=== PATIENT | male | born 1960 | race Caucasian/White ===

== ENCOUNTER 2018-04-07 22:10 | Emergency (ER) | payer MEDICAID ==
--- NOTE | 2018-04-07 22:26 | CPEKG ---
Heart Rate: 70 RR Interval: 857 P-R Interval: 216 QRSD Interval: 116 QT Interval: 424 QTC Interval: 458 P [place]: 19 QRS [place]: -1 T Wave [place]: 209 EKG Severity - ABNORMAL ECG - EKG Impression: SINUS RHYTHM EKG Impression: FIRST DEGREE AV BLOCK EKG Impression: NONSPECIFIC INTRAVENTRICULAR CONDUCTION DELAY EKG Impression: ABNRM R PROG, CONSIDER ASMI OR LEAD PLACEMENT EKG Impression: MINIMAL ST DEPRESSION, LATERAL LEADS EKG Impression: No change from prior. Electronically Signed By: Anthony Aparicio 09-Apr-2018 00:05:41
[2018-04-07] MEDS ORDERED: ASPIRIN 81 MG CHEWABLE TAB PO ONE (22:47)
--- NOTE | 2018-04-07 22:47 | EDPHY ---
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 He tells me that he went to the gym today in the afternoon and had a workout that"felt good". He has been working at the gym only for about 2 weeks in an effort to get himself in better shape. After the gym this evening he went out and had dinner in [place], he ate a couple zone. He drove back to the gym to do a little socializing it was then around 9 o'clock that he noticed his arm was weak. He denies numbness to the arm. He denies facial droop or slurred speech. He has no headache. The only other symptom he tells me is when he was walking into the emergency department he felt his right leg was slightly off as he noticed he had a limp which is not normal for him. In the emergency department during the evaluation he denies any sensation of weakness in his right arm. He denies any chest pain or shortness of breath. He has had no recent illnesses. He is scheduled for a stress test with Dr. Arriaza at [facility] on Thursday. REVIEW OF SYSTEMS: Constitutional: No fever, no chills. Eyes: No discharge. ENT: No sore throat. Cardiovascular: No chest pain, no palpitations. Respiratory: No cough, no shortness of breath. Gastrointestinal: No abdominal pain, no vomiting. Genitourinary: No dysuria. Musculoskeletal: No back pain. Skin: No rashes. Neurological: No headache. No vision changes General Appearance: Alert, no distress. Overweight. Eyes: Pupils equal and round no pallor or injection. ENT, Mouth: Mucous membranes moist. Respiratory: There are no retractions, lungs are clear to auscultation. Cardiovascular: Regular rate and rhythm. Gastrointestinal: Abdomen is soft and nontender, no masses, bowel sounds normal. Neurological: Cranial nerves intact. Right arm with reasonable strength in flexion and extension but much weaker when compared to left. Patient is right- hand dominant. Normal sensation to the right hand. Normal pulses. Patient is able to hold right arm up for a full 10 sec. Lower extremity exam normal. Skin: Warm and dry, no rashes. Musculoskeletal: Neck is supple nontender. Extremities are symmetrical, full range of motion, no edema. Psychiatric: Patient is oriented X 3, there is no agitation. Medical/surgical history: Cardiomegaly, stage for hypertension, donated a kidney in 2007. Surgery on right elbow. He wears CPAP at night. Social history: Former smoker (Aubree Heard) Constitutional: Initial Vital Signs Temperature (C) 36.6 C 04/07/18 22:20 Heart Rate 72 04/07/18 22:20 Respiratory Rate 20 04/07/18 22:20 Blood Pressure 163/107 H 04/07/18 22:20 O2 Sat (%) 96 04/07/18 22:20 O2 Delivery Mode Room Air O2 (L/minute) 2 Allergies/Adverse Reactions: Sulfa (Sulfonamide Antibiotics) Allergy (Verified 08/06/16 14:54) Home Medications: Medication Instructions Recorded Bystolic 04/07/18 Hydralazine HCl 04/07/18 Medical Decision Making <Aubree Heard - Last Filed: 04/07/18 23:09> - Diagnostics Imaging: Discussed imaging studies w/ scallop cutter Radiologist <Anthony Aparicio - Last Filed: 04/08/18 07:16> - Diagnostics Imaging Results: Imaging Impressions Head CT 04/07/18 22:47 Impression: There is no acute intracranial abnormality identified on this unenhanced CT evaluation. If there is further clinical concern regarding the patient's symptoms, MR imaging is suggested, if not otherwise contraindicated. Findings were discussed with Anthony Aparicio MD at 23:03, on 04/07/2018. (CT exam time: 22:56). Chest X-Ray 04/07/18 22:48 Impression: Query mild cardiac silhouette enlargement. ED Course/Re-evaluation: 10:40 p.m. stroke alert called for right upper extremity weakness. Last normal 9:00 p.m.. EKG shows sinus rhythm with a rate of 70, first-degree AV block and nonspecific intraventricular conduction delay. Some diffuse T-wave abnormalities, inversions. When compared to EKG from July 2016 no significant changes. Impression abnormal, nonspecific unchanged EKG. At 11:[address] Siddharth hernandez came to the emergency department for his evening shift. I discussed this case in detail and he will take over care. (Aubree Heard) Differential Diagnosis: Differential diagnosis includes CVA, peripheral neuropathy, musculoskeletal weakness. At the time of my departure from the emergency department patient undergoing evaluation for possible stroke. Dr. Aparicio will assume care. (Aubree Heard) Other Provider: Care assumed at 2300 hr. Pt interviewed and examined, chart reviewed and d/w Dr. Heard: In addition to the above comments by Dr. Heard, on my HX pt states he is right handed. He weakness and clumsiness on the right is slightly better than at arrival, at this time. No GIRALDO nor scotoma. No hx of Migraine or head trauma or neck injury. No prior neuro work up nor carotid study. ROS otherwise neg. PE, after neg CT: General Appearance: Alert, no distress. Afebrile. Normal phonation. No respiratory distress. Eyes: Pupils equal and round no pallor or injection. No icterus ENT, Mouth: Mucous membranes moist slightly dry moderately dry Pharynx without erythema or exudate. TM Clear. Neck: No adenopathy. Supple. No JVD. Trachea in midline. Respiratory: There are no retractions, lungs are clear to auscultation. Chest wall: Nontender to palpation. No crepitus. Cardiovascular: Regular rate and rhythm. Abdomen: Soft and nontender, no masses, bowel sounds normal. Femoral pulses equal. Neurological: Cranial nerves 2-12 are intact. Normal muscles of facial expression. No nystagmus nor internuclear palsy. EOMI. Ox3. He has both slightly clumsy and a little weak in the right hand, right hand dominant. 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 He also has slightly decreased [id number] coordination on the right compared to the left. Sensation intact. Gait nl. Skin: Warm and dry, no rashes. Musculoskeletal: No joint swelling. Extremities: No edema. Homans sign negative. No cords. Psychiatric: Normal affect. Patient is oriented X 3. There is no agitation EKG shows no acute achanges with mild NSSTT changes laterally and inferior. No personal or family hx of aortic diseases. Former smoker though wrt RF for aortic aneurysm. NO connective tissue disease. No hypermobile joints or disproportionate upper vs lower body segment or digits. Reviewed his Echo pt brought with him: Echo in 08/08 - mild concentric LV hypertrophy with nl EF and systolic function. Neurologic stroke scale = 1 due to EDITA weakness, though able to hold arm up for [address] scan was performed without IV contrast. Interpretation by radiologist. Discussed with radiologist. Findings are essentially negative. I discussed with the radiologist the prospect of doing a CTA of head and neck. However, given the fact he has 1 kidney, creatinine of 1.4, and stroke scale of 1, I would defer to the prospect of getting MRI later tonight or tomorrow. D/w Dr. Goodman of [place]. He interviewed and examined pt remotely. Recommends: - hospitalization - not a TPA candidate - MRI in the am - no need to acutely intervene on BP of 180/110. Though pt given his medications he was due this evening, from his own supply = Bystolic and hydralazine Case discussed with Dr. Villasenor of [facility] hospitalist group regarding admission. Patient accepted for direct admission, observation status, there were that the patient is insisting on a private car and likewise advise the patient again such. I met with the patient discussed my concerns regarding the prospect of this being a stroke syndrome. It certainly is improving a little bit so the prospect of a classic migraine equivalent is certainly possible. A TIA would be of consideration however it is not resolved completely. The patient aware of my concerns. He was somewhat reticent for consideration of admission but ultimately understood the both high and doctor for [facility] recommended such. However, the patient was caution and warned regarding the need for him was transfer. He continued to be adamant that he would be assuming the risk for private vehicle transfer. Despite several attempts to dissuade him, he stuck with this plan and was left AMA -though was willing to take himself to [facility] for admission (Anthony Aparicio) - Data Points Laboratory Results: Laboratory Results 04/07/18 22:50 04/07/18 22:50 04/07/18 04/07/18 04/07/18 22:50 22:50 22:50 WBC RBC Hgb POC Hgb 15.0 gm/dL gm/dL (13.7-17.5) Hct POC Hct 44 % % (40-51) MCV MCH MCHC RDW Plt Count MPV Neut % (Auto) Lymph % (Auto) [place] % (Auto) Eos % (Auto) Baso % (Auto) Nucleat RBC Rel Count Absolute Neuts (auto) Absolute Lymphs (auto) Absolute Monos (auto) Absolute Eos (auto) Absolute Basos (auto) Absolute Nucleated RBC Immature Gran % Immature Gran # PT 13.7 SEC SEC (12.0-15.0) INR 1.06 (0.83-1.16) POC Sodium 145 mEq/L mEq/L (135-145) Sodium 141 mEq/L mEq/L (135-145) POC Potassium 3.6 mEq/L mEq/L (3.3-5.0) Potassium 3.6 mEq/L mEq/L (3.3-5.0) POC Chloride 107 mEq/L mEq/L (97-110) Chloride 105 mEq/L mEq/L (97-110) Carbon Dioxide 24 mEq/l mEq/l (22-31) Anion Gap 12 mEq/L mEq/L (8-16) POC BUN 27 mg/dL H mg/dL (7-23) BUN 27 mg/dL H mg/dL (7-23) Creatinine 1.3 mg/dL mg/dL (0.7-1.3) POC Creatinine 1.4 mg/dL H mg/dL (0.7-1.3) Estimated GFR 57 Glucose 116 mg/dL H mg/dL (70-100) POC Glucose 115 mg/dL H mg/dL (70-100) Calcium 9.1 mg/dL mg/dL (8.5-10.4) 04/07/18 22:50 WBC 8.42 10^3/uL 10^3/uL (3.80-9.50) RBC 4.97 10^6/uL 10^6/uL (4.40-6.38) Hgb 14.9 g/dL g/dL (13.7-17.5) POC Hgb Hct 43.8 % % (40.0-51.0) POC Hct MCV 88.1 fL fL (81.5-99.8) MCH 30.0 pg pg (27.9-34.1) MCHC 34.0 g/dL g/dL (32.4-36.7) RDW 13.7 % % (11.5-15.2) Plt Count 219 10^3/uL 10^3/uL (150-400) MPV 9.7 fL fL (8.7-11.7) Neut % (Auto) 56.2 % % (39.3-74.2) Lymph % (Auto) 26.5 % % (15.0-45.0) [place] % (Auto) 10.8 % % (4.5-13.0) Eos % (Auto) 4.9 % % (0.6-7.6) Baso % (Auto) 1.4 % % (0.3-1.7) Nucleat RBC Rel Count 0.0 % % (0.0-0.2) Absolute Neuts (auto) 4.73 10^3/uL 10^3/uL (1.70-6.50) Absolute Lymphs (auto) 2.23 10^3/uL 10^3/uL (1.00-3.00) Absolute Monos (auto) 0.91 10^3/uL H 10^3/uL (0.30-0.80) Absolute Eos (auto) 0.41 10^3/uL H 10^3/uL (0.03-0.40) Absolute Basos (auto) 0.12 10^3/uL H 10^3/uL (0.02-0.10) Absolute Nucleated RBC 0.00 10^3/uL 10^3/uL (0-0.01) Immature Gran % 0.2 % % (0.0-1.1) Immature Gran # 0.02 10^3/uL 10^3/uL (0.00-0.10) PT INR POC Sodium Sodium POC Potassium Potassium POC Chloride Chloride Carbon Dioxide Anion Gap POC BUN BUN Creatinine POC Creatinine Estimated GFR Glucose POC Glucose Calcium Medications Given: Discontinued Medications Aspirin (Aspirin) 324 mg PO EDNOW ONE Stop: 04/07/18 22:48 Last Admin: 04/07/18 23:16 Dose: 324 mg Hydralazine HCl (Apresoline) 10 mg PO EDNOW ONE Stop: 04/08/18 00:17 Last Admin: 04/08/18 00:34 Dose: 10 mg Sodium Chloride (Ns) 1,000 mls @ 0 mls/hr IV EDNOW ONE; Wide Open PRN Reason: Protocol Stop: 04/07/18 23:18 Last Admin: 04/07/18 23:18 Dose: 1,000 mls Nebivolol (Bystolic) 10 mg PO DAILY ONE Stop: 04/08/18 00:15 Last Admin: 04/08/18 00:34 Dose: 10 mg Point of Care Test Results: 04/07/18 22:50 POC Sodium 145 POC Potassium 3.6 POC Chloride 107 POC BUN 27 H POC Creatinine 1.4 H POC Glucose 115 H Departure <Aubree Heard - Last Filed: 04/07/18 23:09> <Anthony Aparicio - Last Filed: 04/08/18 07:16> - Departure Disposition: Acute Care Hospital Not [facility] Clinical Impression: Right arm weakness CVA (cerebral vascular accident) Qualifiers: CVA mechanism: unspecified Qualified Code(s): I63.9 - Cerebral infarction, unspecified Condition: Fair Additional Instructions: If you change your mind in the parking lot and want to go by ambulance, we would be happy to arrange that. Go directly to the hospital. Do not go home for some belongings. Referrals: Patient,NotPresent [Primary Care Provider] - As per Instructions
[2018-04-07] MEDS ORDERED: IOPAMIDOL (ISOVUE 370) 100 ML BTL IV ONE (22:55)
[2018-04-07] MEDS ORDERED: IOPAMIDOL (ISOVUE-370) 150 ML BTL IV ONE (22:55)
[2018-04-07 22:57] LABS: PLATELET COUNT 219 10^3/uL (150-400)
[2018-04-07 23:05] LABS: INR 1.06 (0.83-1.16); PROTIME(PATIENT) 13.7 SEC (12.0-15.0)
[2018-04-07] MEDS ORDERED: NS 1,000 ML IV ONE (23:17)
[2018-04-08] MEDS ORDERED: NEBIVOLOL HCL 5 MG TAB PO ONE (00:14)
[2018-04-08] MEDS ORDERED: hydrALAZINE 10 MG TAB PO ONE (00:16)
[2018-04-08 01:12] VITALS: BP 176/91
== END 2018-04-08 01:12 | disposition short-term general hospital (02) ==
LOC: CED 22:10
DX: I63.9 Cerebral infarction, unspecified (principal); E86.9 Volume depletion, unspecified; I10 Essential (primary) hypertension; Z87.891 Personal history of nicotine dependence
CPT/HCPCS: 70450-PO; 71045-PO; 80048-PO; 82947-QW; 85025-PO; 85610-PO; Q9967

== ENCOUNTER 2018-04-13 14:17 | Inpatient (IN) | payer MEDICAID ==
[2018-04-13] MEDS ORDERED: NS 1,000 ML IV ONE (14:29)
--- NOTE | 2018-04-13 14:32 | CPEKG ---
Heart Rate: 143 RR Interval: 420 QRSD Interval: 100 QT Interval: 324 QTC Interval: 500 QRS [place]: 15 T Wave [place]: 206 EKG Severity - ABNORMAL ECG - EKG Impression: ATRIAL FIBRILLATION EKG Impression: REPOL ABNRM SUGGESTS ISCHEMIA, LATERAL LEADS EKG Impression: BORDERLINE PROLONGED QT INTERVAL Electronically Signed By: Denys Rosales 13-Apr-2018 14:48:11
--- NOTE | 2018-04-13 14:33 | EDPHY ---
H & P Source: Patient Exam Limitations: No limitations - Medical/Surgical History Hx Asthma: No Hx Chronic Respiratory Disease: No Hx Diabetes: No Hx Cardiac Disease: Yes Hx Renal Disease: No Hx Cirrhosis: No Hx Alcoholism: No Hx HIV/AIDS: No Hx Splenectomy or Spleen Trauma: No Other PMH: HTN, 1 kidney, ortho sx (patient donated a kidney)enlarged Heart - Family History Significant Family History: No pertinent family hx - Social History Smoking Status: Former smoker Alcohol Use: Sober Drug Use: None Time Seen by Provider: 04/13/18 14:26 HPI/ROS: CHIEF COMPLAINT: Lightheaded HISTORY OF PRESENT ILLNESS: The patient is a 57-year-old obese man who comes to the emergency department complaining of lightheadedness. He was seen here 3 days ago and complained about slight right arm weakness. He had very minimal deficits found on exam but stroke alert was initiated. He was found not to be a tPA candidate and his symptoms resolved and he was transferred to [facility]. The patient reports that there he had an MRI that revealed a lacunar infarct. He was started on aspirin and his blood pressure medicine increased. He does have a history of hypertension. He also reports history of an enlarged heart but denies coronary artery disease arrhythmias. He denies chest pain or shortness of breath today. No recent infections. States that his symptoms began about an hour ago while he was working on his car. REVIEW OF SYSTEMS: Constitutional: denies: chills, fever, recent illness, recent injury EENTM: denies: blurred vision, double vision, nose congestion Respiratory: denies: cough, shortness of breath Cardiac: See HPI denies: chest pain Gastrointestinal/Abdominal: denies: abdominal pain, diarrhea, nausea, vomiting, blood streaked stools Genitourinary: denies: dysuria, frequency, hematuria, pain Musculoskeletal: denies: joint pain, muscle pain Skin: denies: lesions, rash, jaundice, bruising Neurological: denies: headache, numbness, paresthesia, tingling, dizziness, weakness Hematologic/Lymphatic: denies: blood clots, easy bleeding, easy bruising Immunologic/allergic: denies: HIV/AIDS, transplant EXAM: GENERAL: Well-appearing, well-nourished and in no acute distress. HEAD: Atraumatic, normocephalic. EYES: Pupils equal round and reactive to light, extraocular movements intact, sclera anicteric, conjunctiva are normal. ENT: TMs normal, nares patent, oropharynx clear without exudates. Moist mucous membranes. NECK: Normal range of motion, supple without lymphadenopathy or JVD. LUNGS: Breath sounds clear to auscultation bilaterally and equal. No wheezes rales or rhonchi. HEART: Irregular, without murmurs, rubs or gallops. ABDOMEN: Soft, nontender, normoactive bowel sounds. No guarding, no rebound. No masses appreciated. BACK: No CVA tenderness, no spinal tenderness, step-offs or deformities EXTREMITIES: Normal range of motion, no pitting or edema. No clubbing or cyanosis. NEUROLOGICAL: Cranial nerves II through XII grossly intact. Normal speech, normal gait. 5/5 strength, normal movement in all extremities, normal sensation PSYCH: Normal mood, normal affect. SKIN: Warm, dry, normal turgor, no visible rashes or lesions. (Denys Rosales) Constitutional: Initial Vital Signs Temperature (C) 36.6 C 04/13/18 14:20 Heart Rate 150 H 04/13/18 14:20 Respiratory Rate 18 04/13/18 14:20 Blood Pressure 110/70 04/13/18 14:20 O2 Sat (%) 93 04/13/18 14:20 O2 Delivery Mode Nasal Cannula O2 (L/minute) 2 Allergies/Adverse Reactions: Sulfa (Sulfonamide Antibiotics) Allergy (Verified 08/06/16 14:54) Home Medications: Medication Instructions Recorded Aspirin [Aspirin 81mg (*)] 81 mg PO DAILY 04/13/18 Nebivolol HCl [Bystolic] 10 mg PO BID 04/13/18 hydrALAZINE [Apresoline 25 mg (RX)] 25 mg PO BID 04/13/18 Medical Decision Making - Diagnostics EKG Interpretation: An EKG obtained and was read and documented in trace view. Please see trace view for full reading and report. Atrial fibrillation with RVR, no acute ischemic changes (Denys Rosales) ED Course/Re-evaluation: We discussed the patient's atrial fibrillation. I will give him diltiazem and Lovenox. Lab work is still pending. The patient will require hospitalization. He was just discharged from [facility]'s day or 2 ago. They performed stress test, carotid endarterectomy, MRI at said her there. He would prefer to go back there. (Denys Rosales) Differential Diagnosis: Partial list of the Differential diagnosis considered include but were not limited to; atrial fibrillation, SVT, anxiety, hypertensive emergency and although unlikely based on the history and physical exam, I also considered CVA , infection. (Denys Rosales) Other Provider: Care turned over to me at shift change, patient pending inpatient admission for new onset atrial fibrillation with rapid ventricular rate. Patient had been given diltiazem 10 mg as well as Lovenox 150 mg prior to my arrival. His rate tended to vary between 90 and 120 after medication. He had no further complaints Initially I attempted to admit him to [facility] where he had had a recent admission for lacunar infarct last week, however they did not have any bed availability this afternoon, I then contacted [facility] who was able to admit the patient to a telemetry bed. I discussed the case with Dr. Hakeem Ayala. After the bed was assigned an ambulance was contacted and patient was taken to [facility] without incident. (Vianey Perdomo) - Data Points Laboratory Results: Laboratory Results 04/13/18 14:35 04/13/18 14:35 Medications Given: Aspirin (Aspirin) 81 mg PO DAILY FABIOLA Stop: 10/11/18 08:59 Last Admin: 04/14/18 09:59 Dose: 81 mg Diltiazem HCl (Cardizem Immediate Release) 30 mg PO Q6HRS FABIOLA Stop: 10/11/18 00:00 Last Admin: 04/14/18 13:04 Dose: 30 mg Hydralazine HCl (Apresoline) 25 mg PO BID FABIOLA Stop: 10/11/18 08:59 Last Admin: 04/14/18 09:59 Dose: 25 mg Nebivolol (Bystolic) 10 mg PO BID FABIOLA Stop: 10/11/18 08:59 Last Admin: 04/14/18 09:59 Dose: 10 mg Rivaroxaban (Xarelto) 20 mg PO DAILY FABIOLA Stop: 10/11/18 08:59 Last Admin: 04/14/18 09:59 Dose: 20 mg Discontinued Medications Diltiazem HCl (Cardizem 25 Mg/5 Ml Vial) 10 mg IVP EDNOW ONE Stop: 04/13/18 14:41 Last Admin: 04/13/18 14:42 Dose: 10 mg Diltiazem HCl (Cardizem 25 Mg/5 Ml Vial) 10 mg IVP EDNOW ONE Stop: 04/13/18 14:37 Last Admin: 04/13/18 14:59 Dose: Not Given Enoxaparin Sodium (Lovenox) 150 mg SC EDNOW ONE Stop: 04/13/18 14:38 Last Admin: 04/13/18 15:13 Dose: Not Given Enoxaparin Sodium (Lovenox) 150 mg SC EDNOW ONE Stop: 04/13/18 15:04 Last Admin: 04/13/18 15:06 Dose: 150 mg Sodium Chloride (Ns) 1,000 mls @ 0 mls/hr IV EDNOW ONE; Wide Open PRN Reason: Protocol Stop: 04/13/18 14:30 Last Admin: 04/13/18 14:35 Dose: 1,000 mls Departure - Departure Disposition: [facility] Clinical Impression: Atrial fibrillation Qualifiers: Atrial fibrillation type: unspecified Qualified Code(s): I48.91 - Unspecified atrial fibrillation Condition: Fair
[2018-04-13] MEDS ORDERED: DILTIAZEM 25 MG/5 ML VIAL IVP ONE ×3 (14:36→14:40)
[2018-04-13] MEDS ORDERED: ENOXAPARIN 150 MG/ML SYR SC ONE (14:37)
[2018-04-13 14:43] LABS: PLATELET COUNT 248 10^3/uL (150-400)
[2018-04-13 14:50] LABS: PROTIME(PATIENT) 13.1 SEC (12.0-15.0)
[2018-04-13] MEDS ORDERED: ENOXAPARIN 80 MG/0.8 ML SYR SC ONE ×2 (15:01→15:03)
--- NOTE | 2018-04-13 19:40 | GHP ---
[f rep st] HISTORY AND PHYSICAL DATE OF ADMISSION: 04/13/2018 CHIEF COMPLAINT: Feeling "wonkie." HISTORY OF PRESENT ILLNESS: This is a 57-year-old male with history of malignant hypertension and ho spitalization last week at [facility] from 04/07 through 04/09/2018, where he was treate d for an acute lacunar infarct. That resulted in some slight right arm weakness. The patient was discharged home on aspirin. Today, he just felt off and went to the emergency depart ment to have his blood pressure checked. Over the past few months his blood pressure has been runnin g high, averaging in the 170 systolic and diastolics usually around 100. Today his blood pressure wa s actually found to be low in the 120s. He was also found to be in atrial fibrillation which is a ne w diagnosis for him. The patient has had palpitations on and off for years. He denies any chest brice n, and has not had any syncopal episodes. PAST MEDICAL HISTORY: 1. Severe hypertension. 2. Obstructive sleep apnea. 3. Recent CVA, as mentioned in the HPI. 4. Hemorrhoids. PAST SURGICAL HISTORY: 1. Donated his left kidney. 2. Lumbar laminectomy. 3. Right elbow reconstruction. HOME MEDICATIONS: Reviewed. Refer to [employer] for details. ALLERGIES: Sulfa. SOCIAL HISTORY: He is currently disabled due to shortness of breath which he attributes to his hyper tension. He is a former smoker. Does not drink. He denies any illicit drug use. FAMILY HISTORY: Reviewed and noncontributory. REVIEW OF SYSTEMS: Comprehensive 10-point review of systems was done and is negative, except for as mentioned in the HPI. PHYSICAL EXAM: VITAL SIGNS: Blood pressure 178/107, heart rate 110, respiratory rate 18, O2 saturat ion 97% on 2 L. Temperature afebrile. GENERAL: No acute distress. HEAD: Normocephalic, atraumati c. EYES: PERRLA. Sclerae anicteric. MOUTH: Moist mucous membranes. NECK: Supple. No lymphaden opathy. CARDIOVASCULAR: S1-S2 irregularly irregular. No JVD. No lower extremity edema. PULMONARY : Lungs are clear. No wheezes, rales, or rhonchi. ABDOMEN: Soft, mildly distended. No guarding o r rebound tenderness. Normoactive bowel sounds. EXTREMITIES: No clubbing or cyanosis. NEURO: Roentgenology Teacher nial nerves 2-12 grossly intact. No focal motor or sensory deficits. No pronator drift. Face is sy mmetric. Skin clear no rashes. DIAGNOSTICS: EKG, which I visualized and personally interpreted, shows atrial fibrillation. Rate 14 3 beats per minute. Chest x-ray, which I visualized and personally interpreted, shows borderline cardiomegaly without pul monary edema. WBC 9.3, hemoglobin 16.4, hematocrit 46.6, platelets 248. Sodium 143, potassium 4.1, chloride 108, B UN 28, creatinine 1.3, glucose 92, TSH within normal limits. ASSESSMENT AND PLAN: This is a 57-year-old male, status post ischemic lacunar infarction last week, presenting with: 1. Atrial fibrillation with rapid ventricular response. Plan: The patient will be placed on teleme try with a goal heart rate of less than 100. He has been started on Lovenox in the emergency departm ent, and will be changed over to Xarelto given his insurance status. I did discuss the case with Dr. Riley of Neurology, who thought it would be appropriate to start anticoagulation given his infarction was almost a week ago. We will consult Cardiology to further provide treatment recommendations for his atrial fibrillation and will order echocardiogram. 2. Long standing severe hypertension. Plan: We will continue his home medications and titrate anti hypertensives as indicated. 3. History of obstructive sleep apnea. Plan: Continue CPAP at night. /[id number]/MODL
[2018-04-13] MEDS: DILTIAZEM 30 MG TAB PO SCH (23:30)
[2018-04-14] MEDS: DILTIAZEM 30 MG TAB PO SCH ×4 (07:08→23:42)
[2018-04-14] MEDS: RIVAROXABAN 20 MG TAB PO SCH (09:59)
[2018-04-14] MEDS: ASPIRIN 81 MG CHEWABLE TAB PO SCH (09:59)
[2018-04-14] MEDS: NEBIVOLOL HCL 5 MG TAB PO SCH ×2 (09:59→20:46)
[2018-04-14] MEDS: hydrALAZINE 25 MG TAB PO SCH ×2 (09:59→20:46)
--- NOTE | 2018-04-14 11:50 | ECHO ---
[email or web address] [address] Main: [phone] Fax: Transthoracic Echocardiogram Name: NOY CARLIN MR#: [id number] Study Date: 04/14/2018 Study Time: 10:18 AM Date of : 1960 Age: 57 year(s) Height: 188 cm (74 in.) Weight: 131.54 kg (290 lb.) BSA: 2.54 m2 Gender: Male Examination: Echo Indication: Atrial Fibrillation Image Quality: Contrast: Requested by: Hakeem Ayala BP: 124 mmHg/90 mmHg Heart Rate: Rhythm: Indication: Atrial Fibrillation Procedure Staff Gymnastics Coach: Karen Nichols RDCS Reading Physician: Ha Palma MD Requesting Provider: Conclusions: No pericardial effusion. Concentric left ventricular hypertrophy. Ejection fraction 65%. Mild mitral regurgitation. Dilated ascending aorta at 4.2 cm. Measurements: Chambers Valvular Assessment AV/MV Valvular Assessment TV/PV Normal Normal Normal Name Value Range Name Value Range Name Value Range Ao Roz (MM): 4.3 cm (2.2 cm-3.7 MV E Vmax: 0.67 m/s ( - ) cm) IVSd (2D): 1.6 cm (0.6 cm-1.1 cm) LVDd (2D): 4.7 cm (4.2 cm-5.9 cm) LVDs (2D): 3.3 cm (2.1 cm-4 cm) LVPWd (2D): 1.6 cm (0.6 cm-1 cm) LVEF (MOD4): 66 % (>=55 %) EF Range: 60-65 % Continued Measurements: Chambers Valvular Assessment AV/MV Name Value Name Value LADs: 5.2 cm MV E' Septal: 0.05 m/s LADs Lon.0 cm MV E/E' Septal: 12.80 LA Area: 27.1 cm2 MV E/E' Lateral: 6.40 TAPSE: 2.7 cm Additional Vessels Patient: NOY CARLIN Study Date: 04/14/2018 Page 1 of 2 10:18 AM Name Value Ao Ascendin.2 cm Findings: Left Ventricle: Normal size left ventricle. Mild concentric LV hypertrophy. Normal global systolic LV function. The ejection fraction is estimated to be 60-65 %. No regional wall motion abnormality. Right Ventricle: Normal size right ventricle. Left Atrium: The left atrium is mildly dilated. Right Atrium: The right atrium is normal in size. Mitral Valve: The mitral valve is normal in appearance and function. Mild mitral valve regurgitation is present. Aortic Valve: The aortic valve is normal in appearance and function. Tricuspid Valve: The tricuspid valve is normal in appearance and function. Mild tricuspid regurgitation is present. Pulmonic Valve: Pulmonary valve not well visualized. Aorta: The aorta is normal. Mildly dilated ascending aorta measuring 4.2 cm. Pericardium: No pericardial effusion. There is pericardial fat. (No Signature Object) Patient: NOY CARLIN Study Date: 04/14/2018 Page 2 of 2 10:18 AM [id number]
--- NOTE | 2018-04-14 12:04 | ASMTCASEMG ---
Living Arrangements What is your living Answers: Alone arrangement? Who do you live with? Type Of Residence What kind of residence do Answers: House you live in? Discharge Plan Comments Coordination Status Comments Notes: Pt is a 57 y/o man admitted for afib with rapid ventricular rate. Pt may have a cardio version. Therapies have been ordered and awaiting recommendations. Needs are TBD at this time. CM to follow. Plan: TBD Date Signed: 04/14/2018 12:03 PM Electronically Signed By:DARNELL Kearns
--- NOTE | 2018-04-14 13:48 | HOSPPROG ---
Hospitalist Progress Note Assessment/Plan: 57 yo male with hx of malignant hypertension admitted for new onset Afib. Still in Afib. 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 NPO. Possible cardioversion today. BP ok. Objective: Vital Signs Temp Pulse Resp BP Pulse Ox 36.5 C 108 H 20 138/99 H 96 04/14/18 12:50 04/14/18 12:50 04/14/18 12:50 04/14/18 12:50 04/14/18 12:50 04/13/18 04/14/18 04/15/18 05:59 05:59 05:59 Intake Total 1690 Balance 1690 PT 13.1 SEC (12.0-15.0) 04/13/18 14:35 INR 1.00 (0.83-1.16) 04/13/18 14:35 ICD10 Worksheet Patient Problems: Problems Problem Status Onset Atrial fibrillation Acute
--- NOTE | 2018-04-14 15:46 | PDMN ---
Medical Necessity Medical necessity: Change to IP, as of 04/14/18, per MD; los >2 mn for ongoing management of new onset AFIB; admit for cardioversion, further monitoring & med management; hx recent hospitalization for CVA, malignant htn & LEONIDES; per progress note & order 04/14/18
--- NOTE | 2018-04-14 15:51 | PDCARPN ---
Cardiology Progress Note Chief Complaint: Patient feeling "wonky" and lightheadedness Assessment/Plan: Assessment: Patient is a 57 y/o male with history of difficult to control hypertension, one kidney (donated left kidney), LEONIDES with CPAP use and recent CVA (diagnosed and treated at [facility], who presented to [facility] with complaints of lightheadedness. In his room today, the patient stated that he was feeling "wonky" again. Last week, right upper extremity weakness was noted, and Stroke Alert was called. Work up with lancunar infarct noted on MRI. No return of the weakness that was noted in the setting of the CVA today, but dizziness was noted, and given the recent diagnosis, he opted to have [facility] assessment. Blood pressures continue to be moderately elevated, but of more concern was newly noted atrial fibrillation. Patient stating that over the past several months, there has been some sensation to suggest irregularity to the heart rhythm, but the duration of these events has been seconds to minutes. At present, the patient claims to have awareness of the heart rhythm being fast and irregular. No complaints of chest pains or pressure (patient with reports of negative stress testing at [facility], but once again, we do not have these formal reports in hand). No PND or orthopnea. Ultrasound of the carotids without pathology identified (per patient reports). Remainder of 12 point review of systems is unremarkable Plan: (1) Patient was initially to have LILIAN with possible cardioversion, but there have been strong concerns on compliance voiced (2) Would anticoagulate the patient with NOAC therapy (this therapy over coumadin if there are concerns of compliance given need to have regular assessment of the INR), but great concerns on affordability with financial strains that have been documented in the outpatient cardiology notes (3) Aggressive blood pressure management is needed - this being a large contributor to the patient's newly noted atrial fibrillation - would continue therapy on Bystolic and Hydralazine - a downside of the Bystolic is that as a beta berto, it is not a great therapy for rate/rhythm control assistance (4) Xarelto was started (in the JAN), and this is an acceptable NOAC for anticoagulation in the setting of newly noted atrial fibrillation ([id number] score of 3 for HTN and CVA history) (5) Continue therapy on CPAP (would consider pulmonary input with the settings of the device, as well as likely outpatient follow up) (6) LILIAN with possible cardioversion is a possible option, but I feel that both HTN and LEONIDES control are vital less we find the patient having a need to have repeat cardioversions. Subjective: No cardiovascular complaints at present Objective: Vital Signs (8 Hrs) Temp Pulse Resp BP Pulse Ox 04/14/18 12:50 36.5 C 108 H 20 138/99 H 96 04/14/18 10:48 115 H 94 04/14/18 08:46 37.1 C 100 16 124/90 H 95 Intake/Output (24 Hrs) 04/13/18 04/14/18 04/15/18 05:59 05:59 05:59 Intake Total 1690 Balance 1690 Intake: Oral (ml) 690 IV Intake (ml) 0 IV Infused (ml) 1000 Other: Weight 131.7 kg Number of Voids 1 Toilet 2 Result Diagrams: 04/13/18 14:35 04/13/18 14:35 Telemetry: atrial fibrillation with rapid ventricular response Echocardiogram: normal LVEF without significant valve pathology noted - Physical Exam Constitutional: WDWN, healthy appearing, no apparent distress, obese Eyes: PERRL, EOMI Ears, Nose, Mouth, Throat: moist mucous membranes Cardiovascular: irregularly irregular, pulses symmetric bilat, No jugular vein distention Peripheral Pulses: 2+: dorsalis-pedis (R), dorsalis-pedis (L) Respiratory: clear to auscultate bilat, no crackles, no wheezes Gastrointestinal: normoactive bowel sounds Skin: no rashes, no edema Musculoskeletal: no muscular tenderness Neurologic: AAOx3, CN II-XII grossly intact Psychiatric: cooperative, interactive, following commands ICD10 Worksheet Patient Problems: Problems Problem Status Onset Atrial fibrillation Acute
[2018-04-15] MEDS: DILTIAZEM 30 MG TAB PO SCH ×2 (05:47→12:53)
[2018-04-15] MEDS: RIVAROXABAN 20 MG TAB PO SCH (08:26)
[2018-04-15] MEDS: hydrALAZINE 25 MG TAB PO SCH ×2 (08:26→21:31)
[2018-04-15] MEDS: ASPIRIN 81 MG CHEWABLE TAB PO SCH (08:27)
[2018-04-15] MEDS: NEBIVOLOL HCL 5 MG TAB PO SCH (08:27)
--- NOTE | 2018-04-15 12:37 | HOSPPROG ---
Hospitalist Progress Note Assessment/Plan: 57 yo male with hx of malignant hypertension admitted for new onset Afib. Still in Afib. Initial plan was for cardioversion but this was not performed due to concern regarding compliance. 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 -anticipate discharge tomorrow Subjective: has elevated bp. no cp or sob. no n/v/d Objective: Vital Signs Temp Pulse Resp BP Pulse Ox 36.8 C 107 H 17 164/113 H 97 04/15/18 12:00 04/15/18 12:00 04/15/18 12:00 04/15/18 12:00 04/15/18 12:00 04/14/18 04/15/18 04/16/18 05:59 05:59 05:59 Intake Total 450 840 Output Total 1 Balance 450 839 PT 13.1 SEC (12.0-15.0) 04/13/18 14:35 INR 1.00 (0.83-1.16) 04/13/18 14:35 - Physical Exam Constitutional: no apparent distress Eyes: PERRL, EOMI Ears, Nose, Mouth, Throat: moist mucous membranes Cardiovascular: irregularly irregular, No edema Respiratory: no respiratory distress, no rales or rhonchi Gastrointestinal: normoactive bowel sounds, soft, non-tender abdomen Skin: warm Musculoskeletal: full muscle strength Psychiatric: interacting appropriately, not anxious, not encephalopathic Lymph, Heme, Immunologic: No petechiae ICD10 Worksheet Patient Problems: Problems Problem Status Onset Atrial fibrillation Acute
--- NOTE | 2018-04-15 13:43 | ASMTCMCOM ---
CM Note CM Note Notes: 04/15/2018 Case Management Note Discussed pt during rounds this morning. PT is recommending home independent. Referred pt to [facility] for support after d/c. Case Management d/c poc: Anticipating home independent with follow up as directed. Case Management to follow. Date Signed: 04/15/2018 01:42 PM Electronically Signed By:Chelsey Calloway RN
[2018-04-15] MEDS ORDERED: hydrALAZINE 20 MG/ML VIAL IVP PRN (14:50)
--- NOTE | 2018-04-15 15:22 | PDCARPN ---
Cardiology Progress Note Chief Complaint: Patient without cardiovascular complaints today. Advocate was present with the patient today. Assessment/Plan: Assessment: 04-15-18 Patient doing well today, but blood pressure continues to be moderately to severe elevated. No cardiovascular complaints of chest pains or pressure. No PND or orthopnea. Compliance with prescribed medications are good, but the patient is in the hospital, and medications are being given by nursing staff. No voiced issues with abnormal bleeding or bruising. Long discussion with patient/advocate about consideration for LILIAN and possible cardioversion, AFTER better control of both blood pressure and sleep apnea (patient has not had a formal sleep study, but it is currently pending). Pursuit of these cardiac procedures prior to addressing hypertension and LEONIDES management. Bystolic does not provide much rate control assistance in the setting of atrial fibrillation, and we will stop this therapy to allow an older, rate controlling beta berto to be introduced. 04-14-18 Patient is a 57 y/o male with history of difficult to control hypertension, one kidney (donated left kidney), LEONIDES with CPAP use and recent CVA (diagnosed and treated at [facility], [place], who presented to [facility] with complaints of lightheadedness. In his room today, the patient stated that he was feeling "wonky" again. Last week, right upper extremity weakness was noted, and Stroke Alert was called. Work up with lancunar infarct noted on MRI. No return of the weakness that was noted in the setting of the CVA today, but dizziness was noted, and given the recent diagnosis, he opted to have [facility] assessment. Blood pressures continue to be moderately elevated, but of more concern was newly noted atrial fibrillation. Patient stating that over the past several months, there has been some sensation to suggest irregularity to the heart rhythm, but the duration of these events has been seconds to minutes. At present, the patient claims to have awareness of the heart rhythm being fast and irregular. No complaints of chest pains or pressure (patient with reports of negative stress testing at [place], but once again, we do not have these formal reports in hand). No PND or orthopnea. Ultrasound of the carotids without pathology identified (per patient reports). Remainder of 12 point review of systems is unremarkable Plan: (1) Continue Xarelto for CVA prophylaxis (2) Stop Bystolic and start metoprolol tartrate (50 mg twice per day) (3) Would continue newly added lisinopril for better blood pressure control (4) Discontinue diltiazem (little to not rate control assistance has been noted (5) Formal sleep study is scheduled (according to the patient) for this Thursday (6) Nephrology consultation (7) Neurology consultation (8) LILIAN with possible cardioversion on hold until issues known to cause atrial fibrillation are more aggressively managed. Subjective: No cardiovascular complaints Objective: Vital Signs (8 Hrs) Temp Pulse Resp BP Pulse Ox 04/15/18 12:00 36.8 C 107 H 17 164/113 H 97 04/15/18 07:49 36.5 C 80 14 154/105 H 98 Intake/Output (24 Hrs) 04/14/18 04/15/18 04/16/18 05:59 05:59 05:59 Intake Total 450 840 500 Output Total 1 Balance 450 839 500 Intake: Oral (ml) 450 840 500 IV Intake (ml) 0 Output: Urine (ml) 1 Toilet 1 Other: Intake Quantity Yes Sufficient Number of Voids Toilet 2 1 1 Number of Stools Toilet 1 Result Diagrams: 04/13/18 14:35 04/13/18 14:35 Telemetry: atrial fibrillation - Physical Exam Constitutional: WDWN, healthy appearing, obese Eyes: PERRL, EOMI Ears, Nose, Mouth, Throat: moist mucous membranes Cardiovascular: no murmurs, irregularly irregular, pulses symmetric bilat, No jugular vein distention Peripheral Pulses: 2+: dorsalis-pedis (R), dorsalis-pedis (L) Respiratory: clear to auscultate bilat, no crackles, no wheezes Gastrointestinal: normoactive bowel sounds Skin: no rashes, no edema Musculoskeletal: no muscular tenderness Neurologic: AAOx3, CN II-XII grossly intact Psychiatric: cooperative, interactive, following commands ICD10 Worksheet Patient Problems: Problems Problem Status Onset Atrial fibrillation Acute
[2018-04-15] MEDS: METOPROLOL TARTRATE 50 MG TAB PO SCH ×2 (15:50→21:31)
[2018-04-15] MEDS: LISINOPRIL 10 MG TAB PO SCH (15:50)
[2018-04-15] MEDS ORDERED: METOPROLOL TARTRATE 50 MG TAB PO ONE (18:00)
--- NOTE | 2018-04-15 23:15 | PDCONSULT ---
[employer] Roll P[employer] Sheet Iron Note: NEPHROLOGY CONSULT: CC: "Feeling wonkie" HPI: 57yo male with PMH significant for unilateral kidney (donated kidney to friend in 2007), HTN, LEONIDES, and recent admission to [facility] with hypertensive emergency and acute lacunar infarct with recent titration of antihypertensive meds during hospitalization. 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 He became a fuel oil truck driver in 2009. He was told at physical that BP was high. He reports riding around briefly on his bicylce and then resting and having decreased BP to pass the physical. He reports that BP was initially up to 140's-150's systolic then gradually over time was regularly in 170's since 2016. His bicycle blood pressure lowering trick seemed to continue to work and he continued to pass his truck-driving physicals. 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 Gained significant amount of weight as a fuel oil truck driver. He also reports having LEONIDES for many years. He recently moved to [place] with an old friend. He has established care with a cocoa room operator here. Patient admitted to [facility] on 04/07 after experiencing sudden R arm weakness. Found to have lacunar stroke. BP meds adjusted (notably, Hydralazine was increased from 10mg BID to 25mg BID). Patient reports feeling "wonkie" which he can best describe as feeling generally weak and fatigued. He reports some shortness of breath associated with fluttering in his chest. Later found to have A. fib. Now, looking back, patient reports intermittent palpitations for years. He was not having palpitations when he started feeling wonkie. Denies lightheadedness. Denies chest pain, abdominal pain, constipation, diarrhea. Emptying bladder ok. Denies NSAID use or OTC meds, including decongestants. ROS: 11 systems reviewed and negative except for that discussed in HPI above PMH: HTN Donated kidney to friend in 2007 Recent hospitalization 03/2018 for acute lacunar infarct Obesity Degenerative disc disease s/p surgery LEONIDES Allergies: Allergy/AdvReac Type Severity Reaction Status Date / Time Sulfa (Sulfonamide Allergy Verified 08/06/16 14:54 Antibiotics) Home Medications: Aspirin [Aspirin 81mg (*)] 81 mg PO DAILY 04/13/18 [Last Taken Unknown] Nebivolol HCl [Bystolic] 10 mg PO BID 04/13/18 [Last Taken 04/13/18 08:00] hydrALAZINE [Apresoline 25 mg (RX)] 25 mg PO BID 04/13/18 [Last Taken 04/13/18 08:00] Social History: Quit smoking at age 21 No alcohol No drugs for 35 years Family History: unknown, patient adopted Exam: Temp Pulse Resp BP Pulse Ox 37.1 C 97 20 135/103 H 95 04/15/18 23:17 04/15/18 23:17 04/15/18 23:17 04/15/18 23:17 04/15/18 23:17 O2 (L/minute) 3.0 General: awake, alert, well-appearing Eyes: anicteric sclera, no conjunctival injection HEENT: MMM, no oral lesions Pulm: few rales at bilateral bases, breathing comfortably on RA CV: irregularly irregular, trace bilateral LE edema, no murmurs Abd: obese abdomen, non-tender, + BS Psych: Pleasant, answers questions appropriately Neuro: No residual neuro deficits from recent lacunar infarct, CN II-XII grossly intact Skin: no rashes or bruises on exposed skin 04/13/18 14:35 04/13/18 14:35 Assessment/Plan: 57yo male with PMH significant for unilateral kidney (donated kidney to friend in 2007), HTN, LEONIDES, and recent admission to [facility] with hypertensive emergency and acute lacunar infarct with recent titration of antihypertensive meds during hospitalization. Patient admitted on 04/13 because he "felt wonkie," most likely 2/2 relative hypotension and/or A. fib. # Unilateral kidney- unknown baseline but presume Cr of 1.3 is baseline given that patient is a large man and has one kidney *Recheck renal function panel in AM *Patient needs to establish care with brakes inspector for blood pressure control and monitoring of renal function *Counseled patient that kidney infections or stones could lead to complete renal failure in him *Counseled patient on the importance of weight loss since he is at increased risk for developing FSGS *I gave patient my card. I am happy to follow him as outpatient. Would have patient call to schedule appointment 2 weeks from discharge # Hypertension- likely a complication of unilateral kidney. Developed hypertension within 2 years of kidney donation. BP has been in current range of 160's-170's for years. No need for secondary hypertension eval. Given that patient had hypotensive symptoms with drop in BP in 120 systolic, would aim to keep blood pressure in 140's-150's systolic for now. If dips lower and patient asymptomatic great. --Will need further titration of antihypertensive medications as outpatient --Currently BP 130's-160's, would continue current regimen for now *Patient plans to get CPAP titrated # Recent lacunar infarct- unclear if A. fib played a role *Agree with statin and aspirin # Afib- Switched to Metoprolol with rate now better controlled --Per cardiology Thank you for involving us in the care of this patient. We will continue to follow along Lisseth Walter MD [facility]
[2018-04-16] MEDS: LISINOPRIL 10 MG TAB PO SCH ×2 (09:07→10:22)
[2018-04-16] MEDS: ASPIRIN 81 MG CHEWABLE TAB PO SCH (09:07)
[2018-04-16] MEDS: METOPROLOL TARTRATE 50 MG TAB PO SCH ×3 (09:07→21:25)
[2018-04-16] MEDS: RIVAROXABAN 20 MG TAB PO SCH (09:07)
[2018-04-16] MEDS: hydrALAZINE 25 MG TAB PO SCH ×3 (09:07→21:25)
--- NOTE | 2018-04-16 10:34 | PDCARPN ---
Cardiology Progress Note Chief Complaint: No complaints today. Overnight, the patient converted back to normal sinus rhythm/sinus bradycardia Assessment/Plan: Assessment: 04-16-18 Patient doing well today. Conversion to normal sinus rhythm overnight. No chest pains or pressure. Plans had been to revisit stress testing, but patient did have this recently at [facility] (we just need to get a copy of the report to ensure that "stress testing" was performed). With that in mind, there is no indication for repeat testing. Switch from Bystolic to metoprolol tartrate (25 mg twice per day) with better blood pressure control and possible assistance with conversion to sinus rhythm. Ongoing use of Xarelto with mild rectal bleeding noted (history of hemorrhoids). Patient confirmed formal sleep study this Thursday. Nephrology saw the patient yesterday and plans on outpatient follow up. 04-15-18 Patient doing well today, but blood pressure continues to be moderately to severe elevated. No cardiovascular complaints of chest pains or pressure. No PND or orthopnea. Compliance with prescribed medications are good, but the patient is in the hospital, and medications are being given by nursing staff. No voiced issues with abnormal bleeding or bruising. Long discussion with patient/advocate about consideration for LILIAN and possible cardioversion, AFTER better control of both blood pressure and sleep apnea (patient has not had a formal sleep study, but it is currently pending). Pursuit of these cardiac procedures prior to addressing hypertension and LEONIDES management. Bystolic does not provide much rate control assistance in the setting of atrial fibrillation, and we will stop this therapy to allow an older, rate controlling beta berto to be introduced. 04-14-18 Patient is a 57 y/o male with history of difficult to control hypertension, one kidney (donated left kidney), LEONIDES with CPAP use and recent CVA (diagnosed and treated at [facility], who presented to [facility] with complaints of lightheadedness. In his room today, the patient stated that he was feeling "wonky" again. Last week, right upper extremity weakness was noted, and Stroke Alert was called. Work up with lancunar infarct noted on MRI. No return of the weakness that was noted in the setting of the CVA today, but dizziness was noted, and given the recent diagnosis, he opted to have [facility] assessment. Blood pressures continue to be moderately elevated, but of more concern was newly noted atrial fibrillation. Patient stating that over the past several months, there has been some sensation to suggest irregularity to the heart rhythm, but the duration of these events has been seconds to minutes. At present, the patient claims to have awareness of the heart rhythm being fast and irregular. No complaints of chest pains or pressure (patient with reports of negative stress testing at [facility], but once again, we do not have these formal reports in hand). No PND or orthopnea. Ultrasound of the carotids without pathology identified (per patient reports). Remainder of 12 point review of systems is unremarkable Plan: (1) Metoprolol 50 mg twice per day to continue. (2) Xarelto for CVA prophylaxis (3) Hold on the ACEi given the renal dysfunction now noted (4) Formal sleep study(pending (5) No indications for LILIAN/cardioversion given the patient was able to accomplish this himself last night (6) Outpatient follow up with cardiology in 5-7 days Subjective: No cardiovascular complaints Reviewed/Discussed With: hospitalist Objective: Vital Signs (8 Hrs) Temp Pulse Resp BP Pulse Ox 04/16/18 07:27 36.4 C 62 20 139/93 H 98 04/16/18 04:13 36.1 C 58 L 17 154/94 H 99 Intake/Output (24 Hrs) 04/15/18 04/16/18 04/17/18 05:59 05:59 05:59 Intake Total 840 1989 Output Total 1 1100 Balance 839 890 Intake: Oral (ml) 840 1989 Output: Urine (ml) 1 1100 Toilet 1 Urinal 1100 Other: Intake Quantity Yes Sufficient Number of Voids Toilet 1 1 Number of Stools Toilet 1 Result Diagrams: 04/13/18 14:35 04/16/18 04:06 Telemetry: sinus rhythm - Physical Exam Constitutional: WDWN, healthy appearing, no apparent distress, obese Eyes: PERRL, EOMI Ears, Nose, Mouth, Throat: moist mucous membranes Cardiovascular: regular rate and rhythm, no murmurs, pulses symmetric bilat Peripheral Pulses: 2+: dorsalis-pedis (R), dorsalis-pedis (L) Respiratory: clear to auscultate bilat, no crackles, no wheezes Gastrointestinal: normoactive bowel sounds Skin: no rashes, no edema Musculoskeletal: no muscular tenderness Neurologic: AAOx3, CN II-XII grossly intact Psychiatric: cooperative, interactive, following commands ICD10 Worksheet Patient Problems: Problems Problem Status Onset Atrial fibrillation Acute
--- NOTE | 2018-04-16 11:55 | CPEKG ---
Heart Rate: 61 RR Interval: 984 P-R Interval: 248 QRSD Interval: 114 QT Interval: 472 QTC Interval: 476 P [place]: 66 QRS [place]: 8 T Wave [place]: 220 EKG Severity - ABNORMAL ECG - EKG Impression: SINUS RHYTHM EKG Impression: FIRST DEGREE AV BLOCK EKG Impression: NONSPECIFIC INTRAVENTRICULAR CONDUCTION DELAY EKG Impression: ABNRM R PROG, CONSIDER ASMI OR LEAD PLACEMENT EKG Impression: MINIMAL ST DEPRESSION, LATERAL LEADS Electronically Signed By: Haseeb Liu 19-Apr-2018 10:16:34
--- NOTE | 2018-04-16 13:01 | SOAPPROG ---
SOAP Progress Note Assessment/Plan: Assessment: 57yo male with PMH significant for unilateral kidney ( donated kidney to friend in 2007), HTN, LEONIDES, admitted for atrial fibrillation, uncontrolled BP's. 1. CKD w/ unilateral kidney- -unknown baseline Cr, presented at 1.3, now 1.4 -most likely etiology vascular due to uncontrolled HTN and bland urine -will arrange outpt follow-up in 2-4 weeks post d/c 2. Hypertension- likely a complication of unilateral kidney and LEONIDES -may consider new renal US for CARLEY or sending renin:elgin -would most likely benefit from diuretic however will hold for possible CTA -on hydralazine, amlodipine, and BB -would add lasix 20mg po BID and Cr may increase slightly with autoregulation which is ok -agree with holding SYDNI in the setting of unilateral kidney for now given no DM and no proteinuria -has sleep study on Thursday night 3. Recent lacunar infarct- unclear if A. fib played a role -on BB per cards -recent stress test reportedly negative -obtaining CTA given EKG findings per primary team -mild risk of MAURICIO, would keep hydrated prio Will continue to follow, please contact if ?s #[phone]. 04/16/18 14:20 Subjective: BP's still elevated to 180's systolic. Patient states that it has been this way for at least 2 years. He is currently a regional owner operator truck driver and [place] so admits to eating a lot of sodium. Objective: Vital Signs Temp Pulse Resp BP Pulse Ox 36.4 C 64 12 185/117 H 97 04/16/18 11:03 04/16/18 11:03 04/16/18 11:03 04/16/18 11:04 04/16/18 11:03 Laboratory Results 04/16/18 04:06 04/15/18 04/16/18 04/17/18 05:59 05:59 05:59 Intake Total 840 1990 Output Total 1 1100 Balance 839 890 PT 13.1 SEC (12.0-15.0) 04/13/18 14:35 INR 1.00 (0.83-1.16) 04/13/18 14:35 Physical Exam - Physical Exam General Appearance: WD/WN, alert, no apparent distress, obese EENT: PERRL/EOMI, normal ENT inspection Neck: non-tender, full range of motion, supple Respiratory: chest non-tender, lungs clear, normal breath sounds Cardiac/Chest: irregularly irregular Abdomen: normal bowel sounds, non-tender, soft Back: Normal inspection Skin: normal color, warm/dry Extremities: normal range of motion, non-tender Neuro/Psych: no motor/sensory deficits, alert, oriented x 3 ICD10 Worksheet Patient Problems: Problems Problem Status Onset Atrial fibrillation Acute
--- NOTE | 2018-04-16 13:56 | HOSPPROG ---
Hospitalist Progress Note Assessment/Plan: 57 yo male with hx of malignant hypertension admitted for new onset Afib. Self converted overnight Telemetry now shows ST depression. He does not have any CP. 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 EKG and trop pending. Negative recent Tari scan at [facility]. No chest pain -cont with med mgmt for HTN. Will also check renal ultrasound per Nephrology -cont inpatient given elevation of BP and further Cards w/u. -will need to determine if he will be able to afford Xarelto Subjective: no cp or sob. self converted back to sinus rhythm Objective: Vital Signs Temp Pulse Resp BP Pulse Ox 36.4 C 64 12 185/117 H 97 04/16/18 11:03 04/16/18 11:03 04/16/18 11:03 04/16/18 11:04 04/16/18 11:03 Laboratory Results 04/16/18 04:06 04/15/18 04/16/18 04/17/18 05:59 05:59 05:59 Intake Total 840 1990 Output Total 1 1100 Balance 839 890 PT 13.1 SEC (12.0-15.0) 04/13/18 14:35 INR 1.00 (0.83-1.16) 04/13/18 14:35 - Physical Exam Constitutional: no apparent distress Eyes: PERRL, EOMI Ears, Nose, Mouth, Throat: moist mucous membranes, hearing normal Cardiovascular: regular rate and rhythym, No edema Respiratory: no respiratory distress, no rales or rhonchi, clear to auscultation Gastrointestinal: normoactive bowel sounds, soft, non-tender abdomen Skin: warm Musculoskeletal: full muscle strength Neurologic: AAOx3 Psychiatric: interacting appropriately, not anxious, not encephalopathic, thought process linear Lymph, Heme, Immunologic: No petechiae ICD10 Worksheet Patient Problems: Problems Problem Status Onset Atrial fibrillation Acute
[2018-04-16] MEDS ORDERED: IOPAMIDOL (ISOVUE-370) 150 ML BTL IV ONE (14:14)
[2018-04-16] MEDS: FUROSEMIDE 20 MG TAB PO SCH (16:15)
--- NOTE | 2018-04-17 07:28 | SOAPPROG ---
SOAP Progress Note Assessment/Plan: Assessment: 57yo male with PMH significant for unilateral kidney (donated kidney to friend in 2007), HTN, LEONIDES, admitted for atrial fibrillation, uncontrolled BP's. 1. CKD w/ unilateral kidney- -unknown baseline Cr, presented at 1.3, now down to 1.0 -most likely etiology vascular due to uncontrolled HTN and bland urine -watch Cr over next 72 hours given risk contrast nephropathy (contrast 04/16)-- he will needs labs checked Thursday if he d/c over weekend -needs gradual lowering of BP over next few weeks to avoid loss of autoregulation -will arrange outpt follow-up in 2-4 weeks post d/c 2. Hypertension- likely a complication of unilateral kidney and LEONIDES, weight gain -may consider new renal US for CARLEY or sending renin:elgin-- we can do as outpt -on hydralazine, amlodipine, and BB, and lasix -agree with holding SYDNI in the setting of unilateral kidney for now given no DM and no proteinuria -has sleep study on Thursday night-- continue CPAP -discussed weight loss- he is motivated -discussed need to gradual lower BP over next few weeks to avoid loss of autoregulation-- BP for now goal 150s-160s reasonable and then gradual further lowering 3. Recent lacunar infarct- -on BB per cards -recent stress test reportedly negative -cath showed small thrombus atrial appendage-- now on xarelto -mild risk of MAURICIO-- follow Cr trend over next 48-72 hours Liliane Patel MD [facility] pager [phone] 04/17/18 09:11 04/17/18 09:14 Subjective: Feels well- really wants to go home. Denies cp. sob. Tells me really wants to avoid meds and also go back to work. Discussed need for anticoagulation and BP meds- willing to take. Has sleep study scheduled for Thursday- notes CPAP really helps him feel better. REviewed cath report. Objective: Vital Signs Temp Pulse Resp BP Pulse Ox 36.0 C 59 L 18 152/86 H 97 04/17/18 04:34 04/17/18 04:34 04/17/18 04:34 04/17/18 04:34 04/17/18 04:34 Laboratory Results 04/17/18 04:20 04/16/18 04/17/18 04/18/18 05:59 05:59 05:59 Intake Total 1989 1000 Output Total 1100 3250 Balance 890 -2250 PT 13.1 SEC (12.0-15.0) 04/13/18 14:35 INR 1.00 (0.83-1.16) 04/13/18 14:35 Physical Exam - Physical Exam General Appearance: alert, no apparent distress EENT: other (mmm) Neck: supple Cardiac/Chest: regular rate, rhythm Abdomen: non-tender, soft Extremities: other (trace ankle edema bilat) Neuro/Psych: alert, oriented x 3 ICD10 Worksheet Patient Problems: Problems Problem Status Onset Atrial fibrillation Acute
[2018-04-17] MEDS: RIVAROXABAN 20 MG TAB PO SCH (10:04)
[2018-04-17] MEDS: hydrALAZINE 25 MG TAB PO SCH ×2 (10:05→16:20)
[2018-04-17] MEDS: FUROSEMIDE 20 MG TAB PO SCH ×2 (10:05→16:20)
[2018-04-17] MEDS: ASPIRIN 81 MG CHEWABLE TAB PO SCH (10:06)
[2018-04-17] MEDS: METOPROLOL TARTRATE 50 MG TAB PO SCH (10:06)
--- NOTE | 2018-04-17 15:48 | HOSPPROG ---
Hospitalist Progress Note Assessment/Plan: 57 yo male with hx of malignant hypertension admitted for new onset Afib. 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 He needs appropriate AC and he is currently on Xarelto. CM is looking into getting this approved. If he cannot get approval, then we will likely need to start Lovenox and Coumadin -He has contrast tomorrow. He needs repeat labs on Thursday -cont inpatient vs discharge pending setting up the above Subjective: no cp or sob. no palpitations. doin well. Objective: Vital Signs Temp Pulse Resp BP Pulse Ox 36.6 C 62 18 140/79 H 98 04/17/18 12:24 04/17/18 12:24 04/17/18 12:24 04/17/18 12:24 04/17/18 12:24 Laboratory Results 04/17/18 04:20 04/16/18 04/17/18 04/18/18 05:59 05:59 05:59 Intake Total 1989 1000 Output Total 1100 3250 1100 Balance 890 -2250 -1100 PT 13.1 SEC (12.0-15.0) 04/13/18 14:35 INR 1.00 (0.83-1.16) 04/13/18 14:35 - Physical Exam Constitutional: no apparent distress, appears nourished Eyes: PERRL, EOMI Ears, Nose, Mouth, Throat: moist mucous membranes, hearing normal, ears appear normal Cardiovascular: regular rate and rhythym Respiratory: no respiratory distress Gastrointestinal: normoactive bowel sounds, soft, non-tender abdomen Skin: warm Neurologic: AAOx3 Psychiatric: interacting appropriately, not anxious, not encephalopathic Lymph, Heme, Immunologic: No petechiae ICD10 Worksheet Patient Problems: Problems Problem Status Onset Atrial fibrillation Acute
--- NOTE | 2018-04-17 16:32 | PDDCSUM ---
Discharge Summary Discharge Summary: 57 yo male with hx of malignant hypertension admitted for new onset Afib. Self converted Cardiac Imaging shows Left Atrial Thrombus He was started on Xarelto. He has been given a coupon for a 30 day supply BP is stable but labile. BP meds were modified. Would not increase further at this time His renal function has improved and on the day of discharge his Cr is 1.0. A BMP needs to be checked on Thursday as he was given contrast on 04/16 and has a solitary kidney. 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
[2018-04-17 16:43] VITALS: BP 168/110
== END 2018-04-17 18:01 | disposition home or self-care (01) | DRG 201 ==
LOC: CED 14:17 → CEDHOLD 15:41 → INTOOBSV 15:41 → F2W 18:35 → OBSVTOIN 19:14
PROVIDERS: ADMIT Family Medicine; ATTEND Family Medicine
DX: I48.91 Unspecified atrial fibrillation (principal); I51.3 Intracardiac thrombosis, not elsewhere classified; I15.0 Renovascular hypertension; Z90.5 Acquired absence of kidney; Z86.73 Personal history of transient ischemic attack (TIA), and cerebral infarction without residual deficits; Z79.82 Long term (current) use of aspirin; G47.33 Obstructive sleep apnea (adult) (pediatric); E66.09 Other obesity due to excess calories; Z68.36 Body mass index [BMI] 36.0-36.9, adult; Z87.891 Personal history of nicotine dependence
CPT/HCPCS: 71046-PO; 80048-PO; 84443-PO; 84484-PO; 85025-PO; 85610-PO; 85730-PO; 96374; 97161-GP; 97165-GO; G0378; J1650; Q9967

== ENCOUNTER → 2018-04-18 | Outpatient (CLI) | payer MEDICAID | LOC: FCPNEURO 23:29 | PROVIDERS: ATTEND Internal Medicine Sleep Medicine | DX: G47.33 Obstructive sleep apnea (adult) (pediatric) (principal) ==

== ENCOUNTER 2018-06-05 12:01 | Emergency (ER) | payer MEDICAID ==
--- NOTE | 2018-06-05 12:19 | CPEKG ---
Heart Rate: 150 RR Interval: 400 QRSD Interval: 100 QT Interval: 324 QTC Interval: 512 QRS [place]ut[place]: 15 T Wave Struthers: 192 EKG Severity - ABNORMAL ECG - EKG Impression: A-FLUTTER W/ PREDOM 2:1 AV BLOCK, A-RATE 319 EKG Impression: PROBABLE LVH WITH SECONDARY REPOL ABNRM EKG Impression: BORDERLINE ST ELEVATION, INFERIOR LEADS EKG Impression: PROLONGED QT INTERVAL Electronically Signed By: Lorenza Menon 07-Jun-2018 22:37:11
[2018-06-05] MEDS ORDERED: ASPIRIN 81 MG CHEWABLE TAB PO ONE (12:29)
[2018-06-05] MEDS ORDERED: NS 500 ML IV ONE (12:29)
--- NOTE | 2018-06-05 12:45 | EDPHY ---
H & P Time Seen by Provider: 06/05/18 12:09 HPI/ROS: CHIEF COMPLAINT: Chest tightness, low energy HISTORY OF PRESENT ILLNESS: Patient is a 57-year-old male with a history of atrial fibrillation. Patient states he woke from sleep this morning feeling chest tightness. He also describes low energy. He feels"wonky." He has mild palpitations. He feels similar to when he has episodes of atrial fibrillation. Patient felt well last evening. The patient is currently prescribed Xarelto, diltiazem, Lasix and metoprolol. However, he ran out of his medication. He recently saw Dr. Shaihd who refilled his prescriptions. He started the medications last night. He was approximately 4 days off his medications. He also took Cardizem, metoprolol and Lasix this morning. He is unable to afford his Xarelto and has not been taking the medication for 4 days. REVIEW OF SYSTEMS: My complete review of systems is negative except as mentioned in the HPI. Past Medical/Surgical History: Atrial fibrillation, hypertension, cardiomyopathy, CVA, sleep apnea, atrial thrombus with the previous atrial fibrillation Smoking Status: Former smoker Physical Exam: Vitals noted. Tachycardiac GENERAL: Well-appearing, in no acute distress, alert. HEENT: Eyes normal to inspection, normal pharynx, no signs of dehydration. NECK: No thyromegaly, no lymphadenopathy, supple. RESPIRATORY: Clear to auscultation bilaterally, no rales, rhonchi or wheezing. CVS: Tachycardia and regular, no rubs, murmurs, or gallops. ABDOMEN: Soft, nontender, nondistended, no organomegaly. BACK: Normal to inspection, no CVA tenderness. SKIN: Normal color, no rash, warm, dry. No pallor. EXTREMITIES: No pedal edema, no calf tenderness, no Homans sign or cords, no joint swelling. NEURO/PSYCH: Alert and oriented x3, normal mood and affect, normal motor sensory exam. No obvious cranial nerve deficit. Constitutional: Initial Vital Signs Temperature (C) 36.6 C 06/05/18 12:03 Heart Rate 135 H 06/05/18 12:03 Respiratory Rate 20 06/05/18 12:03 Blood Pressure 145/119 H 06/05/18 12:03 O2 Sat (%) 94 06/05/18 12:03 O2 Delivery Mode Room Air Allergies/Adverse Reactions: Sulfa (Sulfonamide Antibiotics) Allergy (Verified 06/05/18 12:03) Home Medications: Medication Instructions Recorded Furosemide [Lasix 20 MG (*)] 20 mg PO BID@0900,1500 #60 tab 04/17/18 Rivaroxaban [Xarelto] 20 mg PO DAILY tab 04/17/18 hydrALAZINE [Apresoline] 25 mg PO TID #90 tab 04/17/18 Atorvastatin Calcium [Lipitor 40 40 mg PO DAILY #30 tab 04/26/18 mg (*)] Diltiazem HCl [Cardizem LA] 120 mg PO DAILY #30 tab.er.24h 04/26/18 Metoprolol Tartrate [Lopressor 100 100 mg PO BID #60 tab 04/26/18 mg (*)] Medical Decision Making - Diagnostics Imaging Results: Imaging Impressions Chest X-Ray 06/05/18 12:29 Impression: Normal chest. ED Course/Re-evaluation: In the emergency department I discussed possible etiologies with the patient. I answered all his questions. IV was placed. Laboratory studies, EKG and chest x-ray were ordered. Atrial flutter at 150. 2-1 block. Normal axis. Normal intervals. Patient's CBC and chemistry unremarkable. Troponin is negative. In the emergency department patient converted to sinus rhythm. 1312: EKG shows normal sinus rhythm, normal rate, normal axis, normal intervals. There are no ST or T-wave abnormalities. EKG is normal as interpreted by me. I discussed case with Dr. Walden. I also discussed case with our medical case manager. I discussed the recommendation of anticoagulation with the patient. There was some question as to whether the patient could continue his Xarelto. I discussed this with the medical case manager. Please refer to her note. Patient was discharged with a short supply of Xarelto until he follows up with Cardiology. The patient is unsure if he wants to continue anticoagulation moving forward. Differential Diagnosis: My differential includes but is not limited to atrial fibrillation, atrial flutter, electrolyte abnormality, sugar abnormality, ACS, acute GA, dysrhythmia , atrial clot, DVT, PE - Data Points Laboratory Results: Laboratory Results 06/05/18 12:30 06/05/18 12:30 06/05/18 06/05/18 06/05/18 12:38 12:30 12:30 WBC RBC Hgb Hct MCV MCH MCHC RDW Plt Count MPV Neut % (Auto) Lymph % (Auto) [place] % (Auto) Eos % (Auto) Baso % (Auto) Nucleat RBC Rel Count Absolute Neuts (auto) Absolute Lymphs (auto) Absolute Monos (auto) Absolute Eos (auto) Absolute Basos (auto) Absolute Nucleated RBC Immature Gran % Immature Gran # PT 13.1 SEC SEC (12.0-15.0) INR 0.97 (0.83-1.16) APTT 39.1 SEC H SEC (23.0-38.0) D-Dimer < 0.27 ug/mLFEU ug/mLFEU (0.00-0.50) Sodium 141 mEq/L mEq/L (135-145) Potassium 3.7 mEq/L mEq/L (3.3-5.0) Chloride 113 mEq/L H mEq/L (97-110) Carbon Dioxide 23 mEq/l mEq/l (22-31) Anion Gap 5 mEq/L L mEq/L (8-16) BUN 18 mg/dL mg/dL (7-23) Creatinine 1.1 mg/dL mg/dL (0.7-1.3) Estimated GFR > 60 Glucose 124 mg/dL H mg/dL (70-100) Calcium 9.1 mg/dL mg/dL (8.5-10.4) POC Troponin I 0.01 ng/mL ng/mL (0.00-0.08) 06/05/18 12:30 WBC 8.81 10^3/uL 10^3/uL (3.80-9.50) RBC 5.10 10^6/uL 10^6/uL (4.40-6.38) Hgb 15.5 g/dL g/dL (13.7-17.5) Hct 44.5 % % (40.0-51.0) MCV 87.3 fL fL (81.5-99.8) MCH 30.4 pg pg (27.9-34.1) MCHC 34.8 g/dL g/dL (32.4-36.7) RDW 13.5 % % (11.5-15.2) Plt Count 239 10^3/uL 10^3/uL (150-400) MPV 10.0 fL fL (8.7-11.7) Neut % (Auto) 62.6 % % (39.3-74.2) Lymph % (Auto) 21.5 % % (15.0-45.0) [place] % (Auto) 9.8 % % (4.5-13.0) Eos % (Auto) 4.8 % % (0.6-7.6) Baso % (Auto) 1.0 % % (0.3-1.7) Nucleat RBC Rel Count 0.0 % % (0.0-0.2) Absolute Neuts (auto) 5.52 10^3/uL 10^3/uL (1.70-6.50) Absolute Lymphs (auto) 1.89 10^3/uL 10^3/uL (1.00-3.00) Absolute Monos (auto) 0.86 10^3/uL H 10^3/uL (0.30-0.80) Absolute Eos (auto) 0.42 10^3/uL H 10^3/uL (0.03-0.40) Absolute Basos (auto) 0.09 10^3/uL 10^3/uL (0.02-0.10) Absolute Nucleated RBC 0.00 10^3/uL 10^3/uL (0-0.01) Immature Gran % 0.3 % % (0.0-1.1) Immature Gran # 0.03 10^3/uL 10^3/uL (0.00-0.10) PT INR APTT D-Dimer Sodium Potassium Chloride Carbon Dioxide Anion Gap BUN Creatinine Estimated GFR Glucose Calcium POC Troponin I Medications Given: Discontinued Medications Aspirin (Aspirin) 324 mg PO EDNOW ONE Stop: 06/05/18 12:30 Last Admin: 06/05/18 13:05 Dose: 324 mg Sodium Chloride (Ns) 500 mls @ 1,000 mls/hr IV EDNOW ONE PRN Reason: Protocol Stop: 06/05/18 12:58 Last Admin: 06/05/18 13:05 Dose: 500 mls Point of Care Test Results: Chemistry 06/05/18 12:38 POC Troponin I 0.01 ng/mL ng/mL (0.00-0.08) Departure - Departure Disposition: Home, Routine, Self-Care Clinical Impression: Atrial flutter Qualifiers: Atrial flutter type: typical Qualified Code(s): I48.3 - Typical atrial flutter Condition: Good Instructions: Atrial Flutter (ED) Additional Instructions: Please go directly to [facility] in [place] and machine pecan picker your 3 days of Xarelto. This will cover you until your follow up appointment with cardiology on Thursday, . There is NO co pay for this 3 day supply. Be sure to follow up with your scheduled cardiology appointment for further follow up Referrals: Luis Miguel Shahid MD [Medical Doctor] - 2-3 days, call for appt.
[2018-06-05 13:03] LABS: PLATELET COUNT 239 10^3/uL (150-400)
--- NOTE | 2018-06-05 13:14 | CPEKG ---
Heart Rate: 64 RR Interval: 938 P-R Interval: 224 QRSD Interval: 110 QT Interval: 460 QTC Interval: 475 P [place]: 2 QRS [place]: -13 T Wave [place]: 163 EKG Severity - ABNORMAL ECG - EKG Impression: SINUS RHYTHM EKG Impression: FIRST DEGREE AV BLOCK EKG Impression: NONSPECIFIC INTRAVENTRICULAR CONDUCTION DELAY EKG Impression: PROBABLE LVH WITH SECONDARY REPOL ABNRM EKG Impression: INFERIOR INFARCT, OLD Electronically Signed By: Lorenza Menon 07-Jun-2018 22:37:11
[2018-06-05 13:38] LABS: INR 0.97 (0.83-1.16); PROTIME(PATIENT) 13.1 SEC (12.0-15.0)
[2018-06-05 14:11] VITALS: BP 135/78
--- NOTE | 2018-06-05 14:53 | ASMTCMCOM ---
CM Note CM Note Notes: Met with patient to discuss follow up plans with Cardiology and continuing his anticoagulation. Patient tells me he ran out of his Xarelto 3 or 4 days ago and has not filled this but believes his prescription is ready for supervisor opening and picking at [facility] in [place]. He also explains that he has "looked into" alternative therapies for anticoagulation and is not sure he needs to continue the Xarelto. He confirms that he has NOT been taking any "alternative" supplements while on Xarelto. Patient is scheduled for an echocardiogram (LILIAN) on Thursday morning (06/08) at 1000. I contacted Enoch [facility] in [place] . He confirms that patient's does not have authorization (Medicaid) for his Xarelto refill, but patient is eligible to fill a 3 day "override" of his Xarelto at no charge. Enoch has confirmed that this 3 day supply of xarelto is ready for patient to be picked up. Patient aware that he can supervisor opening and picking his medication and assures me he will go directly to the pharmacy when he leaves the ER. I have confirmed patient's scheduled cathode ray tube assembler (LILIAN) procedure with registration and expalined process of checking in at the kiosk when he arrives on Thursday. Dr Castellon discussed patient's ER visit with Dr. Walden at [facility] and plans for patient to resume Xarelto through Thursday evening Date Signed: 06/05/2018 02:52 PM Electronically Signed By:Marie Cleaning RN
== END 2018-06-05 14:31 | disposition home or self-care (01) ==
DX: I48.3 Typical atrial flutter (principal); E86.9 Volume depletion, unspecified; I10 Essential (primary) hypertension; Z86.73 Personal history of transient ischemic attack (TIA), and cerebral infarction without residual deficits; Z87.891 Personal history of nicotine dependence
CPT/HCPCS: 84484-PO

== ENCOUNTER 2018-06-08 07:32 | Day surgery (SDC) | payer MEDICAID ==
[2018-06-08] MEDS ORDERED: BENZOCAINE UNIT DOSE SPRAY HURRICAINE MM ONE (07:34)
[2018-06-08] MEDS ORDERED: NS 500 ML IV ONE (07:34)
[2018-06-08] MEDS ORDERED: MIDAZOLAM 2 MG/2 ML VIAL IVP ONE (07:34)
[2018-06-08] MEDS ORDERED: fentaNYL 100 MCG/2 ML INJ IVP ONE (07:34)
[2018-06-08] MEDS ORDERED: ATROPINE SULFATE 1 MG/10 ML SYR ONE (09:58)
--- NOTE | 2018-06-08 10:06 | PDGENHP ---
History and Physical History and Physical: Patient is a 57 y/o male, known to me in the outpatient setting, with history of pAF (on Xarelto), HTn, HLP, CVA (thought secondary to HTN), and LA thrombus ( historically), who presents to [facility] as outpatient for LILIAN to reassess aforementioned pathologies. Patient is wanting to pursue non traditional, non western anticoagulation therapies (over Xarelto). Further discussions (in the outpatient setting) are needed to minimize issues with compliance (specifically use of the NOAC therapy). Physical exam without changes No new issues or complaints
[2018-06-08] MEDS ORDERED: PROPOFOL 200 MG/20 ML VIAL ONE (10:22)
[2018-06-08] MEDS ORDERED: METOCLOPRAMIDE 10 MG/2 ML VIAL IVP PRN (10:25)
[2018-06-08] MEDS ORDERED: NS 500 ML IV PRN (10:25)
[2018-06-08] MEDS ORDERED: PROMETHAZINE HCL 25 MG/ML INJ IVP PRN (10:25)
[2018-06-08] MEDS ORDERED: ONDANSETRON 4 MG/2 ML VIAL IVP PRN (10:25)
[2018-06-08] MEDS ORDERED: NALOXONE HCL 0.4 MG/ML INJ IVP PRN (10:25)
[2018-06-08] MEDS ORDERED: fentaNYL 100 MCG/2 ML INJ IVP PRN (10:25)
--- NOTE | 2018-06-08 10:25 | PDANEPAE ---
ANE Past Medical History - Cardiovascular History Hx Hypertension: Yes Hx Arrhythmias: Yes - Pulmonary History Hx Oxygen in Use at Home: No Hx Sleep Apnea: Yes - Endocrine History Hx Diabetes: No - Chronic Pain History Chronic Pain: No ANE Review of Systems Review of Systems: ANE Patient History - Allergies Allergies/Adverse Reactions: Sulfa (Sulfonamide Antibiotics) Allergy (Verified 06/05/18 12:03) - Home Medications Home medications: home medication list seen and reviewed - NPO status NPO Status: no food or drink >8 hours - Anes Hx Anes Hx: no prior problems - Smoking Hx Smoking Status: Former smoker ANE Labs/Vital Signs - Vital Signs Height: 188 cm Weight: 129.3 kg ANE Physical Exam - Airway Neck exam: FROM Mallampati Score: Class 3 - Pulmonary Pulmonary: no respiratory distress, no rales or rhonchi - ASA Status ASA Status: III ANE Anesthesia Plan Anesthesia Plan: MAC
--- NOTE | 2018-06-08 10:46 | POSTANESTH ---
Post Anesthetic Evaluation Cardiovascular Status: Similar to Pre-Op Cond Respiratory Status: Normal, Stable, Similar to Pre-op Cond. Level of Consciousness/Mental Status: Can Participate in Eval, Moderately Sleepy Pain Control: Adequate, Prn Tx Ordered Nausea/Vomiting Control: Adequate, Prn Tx Ordered Complications Possibly Related to Anesthesia: None Noted
--- NOTE | 2018-06-08 14:47 | PDCARTEE ---
CAR LILIAN CAR LILIAN: PROCEDURE INDICATION: DESTINI thrombus was noted in the past, reassessment of presence given NOAC therapy Risks and benefits of procedures (anesthesia risks were discussed by anesthesia , and LILIAN risks were discussed by cardiology) PRELIMINARY RESULTS: Normal LVEF was noted Normal systolic function Moderate LVH noted Moderate MR Trileaflet aortic valve without insufficiency or sclerosis/stenosis noted Grossly normal tricuspid valve Grossly normal pulmonic valve Bubble contrast injection was without right to left passage noted Mild LAE noted No thrombus to the DESTINI No complications were appreciated Patient tolerated this procedure very well Long discussion with patient and advocate post procedure today. Discussions about lifestyle changes (weight loss, regular exercise)
--- NOTE | 2018-07-12 15:17 | ECHO ---
[email or web address] [address] [address] Main: [phone] Fax: Transesophageal Echocardiography Name: NOY CARLIN MR#: [id number] Study Date: 06/08/2018 Study Time: 09:53 AM Date of : 1960 Age: 57 year(s) Height: 188 cm (74 in.) Weight: 131.54 kg (290 lb.) BSA: 2.54 m2 Gender: Male Examination: ILLIAN Indication: MR, evaluate DESTINI Image Quality: Adequate Contrast: Requested by: Luis Miguel Shahid Heart Rate: Rhythm: BP: 189 mmHg/112 mmHg Procedure Staff Wire Weaving Loom Setter: Ammy Gonzales [facility] Reading Physician: Luis Miguel Shahid MD Requesting Provider: LILIAN Exam Details Conclusions: Normal size left ventricle. Normal global systolic LV function. The ejection fraction is estimated to be 55-60 %. No regional wall motion abnormality. Normal size right ventricle. Left atrial enlargement. The left atrial appendage is unilobular. Good color flow doppler in the left atrial appendage. Normal PW-Doppler flow pattern. No thrombus in left appendage. Mitral regurgitation appears to be at least moderate, may be moderate to severe. The aortic valve is tri-leaflet. The tricuspid valve is normal in appearance and function. Mild tricuspid regurgitation is present. There is no pulmonic regurgitation seen. Measurements: Chambers Valvular Assessment AV/MV Valvular Assessment TV/PV Normal Normal Normal Name Value Range Name Value Range Name Value Range EF Range: 55-60 % Additional Measurements: Patient: NOY CARLIN Study Date: 06/08/2018 Page 1 of 2 09:53 AM Findings: Left Ventricle: Normal size left ventricle. Normal global systolic LV function. The ejection fraction is estimated to be 55-60 %. No regional wall motion abnormality. Left ventricular hypertrophy. Right Ventricle: Normal size right ventricle. Normal RV function. Left Atrium: Left atrial enlargement. Left Atrial Appendage: The left atrial appendage is unilobular. Good color flow doppler in the left atrial appendage. Normal PW-Doppler flow pattern. No thrombus in left appendage. Mitral Valve: The mitral valve is normal in appearance and function. Mitral regurgitation appears to be at least moderate, may be moderate to severe. Aortic Valve: The aortic valve is tri-leaflet. Trivial aortic valve regurgitation. No aortic valve stenosis is present. Tricuspid Valve: The tricuspid valve is normal in appearance and function. Mild tricuspid regurgitation is present. Pulmonic Valve: The pulmonic valve is normal in appearance and function. There is no pulmonic regurgitation seen. Pericardium: No pericardial effusion. l1n (No Signature Object) Patient: NOY CARLIN Study Date: 06/08/2018 Page 2 of 2 09:53 AM [id number]
== END 2018-06-08 13:00 | disposition home or self-care (01) ==
LOC: FCATH 07:32
PROVIDERS: ATTEND Internal Medicine Cardiovascular Disease
PROC: B245ZZ4 Ultrasonography of Left Heart, Transesophageal (ICD-10-PCS; principal; 2018-06-08)
DX: I48.91 Unspecified atrial fibrillation (principal); I77.810 Thoracic aortic ectasia; I10 Essential (primary) hypertension; I63.9 Cerebral infarction, unspecified; E66.9 Obesity, unspecified; G47.30 Sleep apnea, unspecified; Z88.2 Allergy status to sulfonamides
CPT/HCPCS: J0461; J2704